=== PATIENT | female | born 1965 | race American Indian/Alaskan Native ===

== ENCOUNTER 2019-08-24 15:32 | Emergency (ER) | payer MEDICARE ==
[2019-08-24 15:41] VITALS: BP 135/87
--- NOTE | 2019-08-24 15:41 | Emergency Department Report ---
Blank Doc - Documentation Documentation: 53-year-old female that presents with headaches. Sated hx of migrane headaches and headache is similar. Denies any trauma. Denies thunderclap headache. Denies worst headaches. This initial assessment/diagnostic orders/clinical plan/treatment(s) is/are subject to change based on patient's health status, clinical progression and re- assessment by fellow clinical providers in the ED. Further treatment and workup at subsequent clinical providers discretion. Patient/guardians urged not to elope from the ED as their condition may be serious if not clinically assessed and managed. Initial orders include: 1- Patient sent to [facility] for further evaluation and treatment
[2019-08-24] MEDS ORDERED: NACL 0.9% 1000 ML 1,000 ML IV ONE (19:20)
[2019-08-24] MEDS ORDERED: DECADRON IV ONE (19:20)
[2019-08-24] MEDS ORDERED: TYLENOL #3 PO ONE (19:20)
[2019-08-24] MEDS ORDERED: REGLAN IV ONE (19:20)
[2019-08-24] MEDS ORDERED: BENADRYL IV ONE (19:20)
--- NOTE | 2019-08-24 20:19 | Emergency Department Report ---
ED Headache HPI - General Chief Complaint: Headache Stated Complaint: HEADACHE/HTN Time Seen by Provider: 08/24/19 15:39 - History of Present Illness Initial Comments: pt is a 53-year-old female that presents with headaches. has hx of same. tx'd with sumatriptan. this headache is similar to headaches of past , in intensisty and location. Pt denies any trauma, thunderclap headache, or worst headache ever. Timing/Duration: 24 hours Quality: moderate Head Injury Location: frontal, parietal Recent Head Trauma: frequent headaches Modifying Factors: improves with: movement Associated Symptoms: denies: nausea/vomiting, seizures, stiff neck, weakness Allergies/Adverse Reactions: Allergies aspirin Allergy (Verified 07/17/15 07:57) Unknown ibuprofen [From Motrin] Allergy (Verified 07/17/15 07:57) Unknown Home Medications: Ambulatory Orders Ciprofloxacin HCl [Ciprofloxacin TAB] 500 mg PO Q12HR #14 tab 07/17/15 Loperamide [Imodium] 2 mg PO Q2HR PRN #20 capsule 07/17/15 Ondansetron [Zofran Odt] 4 mg PO Q4-6H PRN #20 tab.rapdis 07/17/15 Potassium Chloride [K-Dur] 20 meq PO QDAY #3 tablet 07/17/15 Acetaminophen [Acetaminophen TAB] 1,000 mg PO Q6HR PRN #30 tablet 08/24/19 Metoclopramide [Reglan] 10 mg PO Q6H PRN #30 tablet 08/24/19 diphenhydrAMINE [Benadryl CAP] 25 mg PO Q6HR PRN #30 capsule 08/24/19 ED Review of Systems ROS: Stated complaint: HEADACHE/HTN Other details as noted in HPI Constitutional: denies: chills, fever Eyes: denies: eye pain, vision change ENT: congestion. denies: ear pain, throat pain Respiratory: denies: cough, shortness of breath, wheezing Cardiovascular: denies: chest pain, palpitations Endocrine: no symptoms reported Gastrointestinal: denies: abdominal pain, nausea, diarrhea Genitourinary: denies: urgency, dysuria, discharge Musculoskeletal: denies: back pain, joint swelling, arthralgia Skin: denies: rash, lesions Neurological: as per HPI, headache. denies: weakness, numbness, paresthesias, confusion, abnormal gait, vertigo Psychiatric: denies: anxiety, depression Hematological/Lymphatic: denies: easy bleeding, easy bruising ED Past Medical Hx - Past Medical History Previous Medical History?: Yes Hx Hypertension: Yes Additional medical history: fibramyalgia - Surgical History Past Surgical History?: Yes Additional Surgical History: 3 - Social History Smoking Status: Never Smoker Substance Use Type: None - Medications Home Medications: Home Medications Medication Instructions Recorded Confirmed Last Taken Type Ciprofloxacin HCl [Ciprofloxacin 500 mg PO Q12HR #14 tab 07/17/15 Unknown Rx TAB] Loperamide [Imodium] 2 mg PO Q2HR PRN #20 capsule 07/17/15 Unknown Rx Ondansetron [Zofran Odt] 4 mg PO Q4-6H PRN #20 tab.rapdis 07/17/15 Unknown Rx Potassium Chloride [K-Dur] 20 meq PO QDAY #3 tablet 07/17/15 Unknown Rx Acetaminophen [Acetaminophen TAB] 1,000 mg PO Q6HR PRN #30 tablet 08/24/19 Unknown Rx Metoclopramide [Reglan] 10 mg PO Q6H PRN #30 tablet 08/24/19 Unknown Rx diphenhydrAMINE [Benadryl CAP] 25 mg PO Q6HR PRN #30 capsule 08/24/19 Unknown Rx ED Physical Exam - General Limitations: No Limitations General appearance: alert, in no apparent distress - Head Head exam: Present: atraumatic, normocephalic - Eye Eye exam: Present: normal appearance, PERRL, EOMI. Absent: conjunctival injection, nystagmus Pupils: Present: normal accommodation - ENT ENT exam: Present: normal orophraynx, mucous membranes moist, TM's normal bilaterally, normal external ear exam - Neck Neck exam: Present: normal inspection, full ROM. Absent: tenderness, meningismus, lymphadenopathy, thyromegaly - Expanded Neck Exam Expanded Neck exam: Absent: midline deformity, anterior neck swelling, thyroid mass, carotid bruit, tracheal deviation - Respiratory Respiratory exam: Present: normal lung sounds bilaterally. Absent: wheezes, stridor, chest wall tenderness - Cardiovascular Cardiovascular Exam: Present: regular rate, normal rhythm, normal heart sounds. Absent: systolic murmur, diastolic murmur, rubs, gallop - GI/Abdominal GI/Abdominal exam: Present: soft, normal bowel sounds. Absent: distended, tenderness, bruit, hernia - Rectal Rectal exam: Present: deferred - Extremities Exam Extremities exam: Present: normal inspection - Back Exam Back exam: Present: normal inspection, full ROM. Absent: tenderness, CVA tenderness (R), CVA tenderness (L), muscle spasm, paraspinal tenderness, vertebral tenderness, rash noted - Neurological Exam Neurological exam: Present: alert, oriented X3, CN II-XII intact, normal gait, reflexes normal. Absent: motor sensory deficit - Expanded Neurological Exam Expanded Patient oriented to: Present: person, place, time Speech: Present: fluid speech Cranial nerves: EOM's Intact: Normal, Gag Reflex: Normal, Tongue Deviation: Normal, Nystagmus: Normal, Facial Sensation: Normal Upper motor neuron: Radames Neglect: Normal, Pronator Drift: Normal Motor strength exam: RUE: 5, LUE: 5, RLE: 5, LLE: 5 DTR: bicep (R): 2+, bicep (L): 2+, ankle (R): 2+, ankle (L): 2+ Best Eye Response (Desi): (4) open spontaneously Best Motor Response (Desi): (6) obeys commands Best Verbal Response (Desi): (5) oriented [place] Total: 15 - Psychiatric Psychiatric exam: Present: normal affect, normal mood - Skin Skin exam: Present: warm, dry, intact, normal color. Absent: rash ED Course Vital Signs 08/24/19 08/24/19 15:40 19:50 Temperature 98.2 F Pulse Rate 59 L Respiratory 16 16 Rate Blood Pressure 135/87 O2 Sat by Pulse 99 Oximetry ED Medical Decision Making - Medical Decision Making Headache is improved to 2/10. plan: DC home with prescription for Tylenol, Reglan, and Benadryl patient will follow with PCP in 2 days . Return the ED should symptoms worsen. Patient is alert oriented 3 ambulatory with steady gait no visual changes no nausea vomiting no acute distress Critical care attestation.: If time is entered above; I have spent that time in minutes in the direct care of this critically ill patient, excluding procedure time. ED Disposition Clinical Impression: Headache Qualifiers: Headache type: unspecified Headache chronicity pattern: acute headache Intractability: not intractable Qualified Code(s): R51 - Headache Disposition: DC-01 TO HOME OR SELFCARE Is pt being admited?: No Does the pt Need Aspirin: No Condition: Stable Instructions: Acute Headache (ED) Prescriptions: Acetaminophen [Acetaminophen TAB] 1,000 mg PO Q6HR PRN #30 tablet PRN Reason: Headache diphenhydrAMINE [Benadryl CAP] 25 mg PO Q6HR PRN #30 capsule PRN Reason: Headache Metoclopramide [Reglan] 10 mg PO Q6H PRN #30 tablet PRN Reason: Headache Referrals: PRIMARY CAREMD [Primary Care Provider] - 3-5 Days MALACHI COLVIN MD [Staff Physician] - 3-5 Days Forms: Work/School Release Form(ED) Time of Disposition: 20:24
== END 2019-08-24 20:32 | disposition home or self-care (01) ==
LOC: EEVIPCON 15:32 → ED 15:32
DX: R51 Headache (principal); I10 Essential (primary) hypertension; M79.7 Fibromyalgia; Z79.899 Other long term (current) drug therapy; Z88.6 Allergy status to analgesic agent
CPT/HCPCS: 96374; 96375; 99283; J1100; J1200; J2765; J7030

== ENCOUNTER 2020-09-25 17:17 | Emergency (ER) | payer MEDICARE ==
[2020-09-25] MEDS ORDERED: BUTALB/ACETAMINOPHEN/CAFFEINE TAB PO ONE (18:37)
--- NOTE | 2020-09-25 18:41 | Emergency Department Report ---
ED Altered Mental Status HPI - General Chief Complaint: Altered Mental Status Stated Complaint: LOC/POSSIBLE OVERDOSE PUI?: No Time Seen by Provider: 09/25/20 18:35 Source: patient Mode of arrival: Stretcher Limitations: No Limitations - History of Present Illness Initial Comments: Chief complaint: I may have taken too much medicine." HPI: This is a 54-year-old female with history of hypertension, anxiety, fibromyalgia who presents via EMS for unresponsive status. Patient was not arousable per daughter. After 2 mg of Narcan, patient became alert and oriented. Patient took Percocet or Fioricet for pain. She does remember having headache. She has frequent headaches. No preceding chest pain or palpitations. No depression. No suicidal homicidal ideation. Currently she has frontal throbbing headache. 7 out of 10. Constant. No radiation. MD Complaint: decreased responsiveness -: Sudden, This afternoon Severity: severe Context: other (Patient may have taken too much Percocet or Fioricet.) Associated Symptoms: other (Preceding headache) - Related Data Previous Rx's Medication Instructions Recorded Last Taken Type Ciprofloxacin HCl [Ciprofloxacin 500 mg PO Q12HR #14 tab 07/17/15 Unknown Rx TAB] Loperamide [Imodium] 2 mg PO Q2HR PRN #20 capsule 07/17/15 Unknown Rx Ondansetron [Zofran Odt] 4 mg PO Q4-6H PRN #20 tab.rapdis 07/17/15 Unknown Rx Potassium Chloride [K-Dur] 20 meq PO QDAY #3 tablet 07/17/15 Unknown Rx Acetaminophen [Acetaminophen TAB] 1,000 mg PO Q6HR PRN #30 tablet 08/24/19 Unknown Rx Metoclopramide [Reglan] 10 mg PO Q6H PRN #30 tablet 08/24/19 Unknown Rx diphenhydrAMINE [Benadryl CAP] 25 mg PO Q6HR PRN #30 capsule 08/24/19 Unknown Rx Allergies Allergy/AdvReac Type Severity Reaction Status Date / Time aspirin Allergy Unknown Verified 07/17/15 07:57 ibuprofen [From Motrin] Allergy Unknown Verified 07/17/15 07:57 ED Review of Systems ROS: Stated complaint: LOC/POSSIBLE OVERDOSE Other details as noted in HPI Comment: All other systems reviewed and negative Constitutional: denies: fever, malaise Respiratory: denies: cough, shortness of breath Cardiovascular: denies: chest pain Gastrointestinal: denies: abdominal pain, nausea Neurological: headache. denies: numbness, paresthesias, confusion ED Past Medical Hx - Past Medical History Hx Hypertension: Yes Hx Psychiatric Treatment: Yes (Anxiety) Additional medical history: fibramyalgia - Surgical History Past Surgical History?: Yes Additional Surgical History: 3 , partial hysterectomy - Social History Smoking Status: Former Smoker Substance Use Type: None - Medications Home Medications: Home Medications Medication Instructions Recorded Confirmed Last Taken Type Ciprofloxacin HCl [Ciprofloxacin 500 mg PO Q12HR #14 tab 07/17/15 Unknown Rx TAB] Loperamide [Imodium] 2 mg PO Q2HR PRN #20 capsule 07/17/15 Unknown Rx Ondansetron [Zofran Odt] 4 mg PO Q4-6H PRN #20 tab.rapdis 07/17/15 Unknown Rx Potassium Chloride [K-Dur] 20 meq PO QDAY #3 tablet 07/17/15 Unknown Rx Acetaminophen [Acetaminophen TAB] 1,000 mg PO Q6HR PRN #30 tablet 08/24/19 Unknown Rx Metoclopramide [Reglan] 10 mg PO Q6H PRN #30 tablet 08/24/19 Unknown Rx diphenhydrAMINE [Benadryl CAP] 25 mg PO Q6HR PRN #30 capsule 08/24/19 Unknown Rx ED Physical Exam - General Limitations: No Limitations General appearance: alert, in no apparent distress - Head Head exam: Present: atraumatic, normocephalic - Eye Eye exam: Present: normal appearance - ENT ENT exam: Present: mucous membranes moist - Neck Neck exam: Present: normal inspection, full ROM - Respiratory Respiratory exam: Present: normal lung sounds bilaterally. Absent: respiratory distress, wheezes, rales, rhonchi - Cardiovascular Cardiovascular Exam: Present: regular rate, normal rhythm, normal heart sounds. Absent: systolic murmur, diastolic murmur, rubs, gallop - GI/Abdominal GI/Abdominal exam: Present: soft, normal bowel sounds. Absent: distended, tenderness, guarding, rebound - Extremities Exam Extremities exam: Present: normal inspection - Neurological Exam Neurological exam: Present: alert, oriented X3 - Psychiatric Psychiatric exam: Present: normal affect, normal mood - Skin Skin exam: Present: warm, dry, intact, normal color. Absent: rash ED Course Vital Signs 09/25/20 18:33 Temperature 98.1 F Pulse Rate 77 Respiratory 22 Rate Blood Pressure 159/107 [Left] O2 Sat by Pulse 97 Oximetry - Lab Data Result diagrams: 09/25/20 18:51 09/25/20 18:51 Lab Results 09/25/20 09/25/20 09/25/20 Range/Units 18:51 18:51 18:51 WBC 9.2 (4.5-11.0) K/mm3 RBC 4.21 (3.65-5.03) M/mm3 Hgb 11.7 (10.1-14.3) gm/dl Hct 36.0 (30.3-42.9) % MCV 86 (79-97) fl MCH 28 (28-32) pg MCHC 33 (30-34) % RDW 13.7 (13.2-15.2) % Plt Count 265 (140-440) K/mm3 Lymph % (Auto) 16.2 (13.4-35.0) % Russell % (Auto) 6.2 (0.0-7.3) % Eos % (Auto) 0.4 (0.0-4.3) % Baso % (Auto) 0.3 (0.0-1.8) % Lymph # (Auto) 1.5 (1.2-5.4) K/mm3 Russell # (Auto) 0.6 (0.0-0.8) K/mm3 Eos # (Auto) 0.0 (0.0-0.4) K/mm3 Baso # (Auto) 0.0 (0.0-0.1) K/mm3 Seg Neutrophils % 76.9 H (40.0-70.0) % Seg Neutrophils # 7.1 (1.8-7.7) K/mm3 Sodium 140 (137-145) mmol/L Potassium 3.7 (3.6-5.0) mmol/L Chloride 107.1 H (98-107) mmol/L Carbon Dioxide 22 (22-30) mmol/L Anion Gap 15 mmol/L BUN 8 (7-17) mg/dL Creatinine 0.6 (0.6-1.2) mg/dL Estimated GFR > 60 ml/min BUN/Creatinine Ratio 13 % Glucose 99 (65-100) mg/dL Calcium 9.3 (8.4-10.2) mg/dL Salicylates < 0.3 L (2.8-20.0) mg/dL Acetaminophen (10.0-30.0) ug/mL Plasma/Serum Alcohol (0-0.07) % 09/25/20 09/25/20 Range/Units 18:51 18:51 WBC (4.5-11.0) K/mm3 RBC (3.65-5.03) M/mm3 Hgb (10.1-14.3) gm/dl Hct (30.3-42.9) % MCV (79-97) fl MCH (28-32) pg MCHC (30-34) % RDW (13.2-15.2) % Plt Count (140-440) K/mm3 Lymph % (Auto) (13.4-35.0) % Russell % (Auto) (0.0-7.3) % Eos % (Auto) (0.0-4.3) % Baso % (Auto) (0.0-1.8) % Lymph # (Auto) (1.2-5.4) K/mm3 Russell # (Auto) (0.0-0.8) K/mm3 Eos # (Auto) (0.0-0.4) K/mm3 Baso # (Auto) (0.0-0.1) K/mm3 Seg Neutrophils % (40.0-70.0) % Seg Neutrophils # (1.8-7.7) K/mm3 Sodium (137-145) mmol/L Potassium (3.6-5.0) mmol/L Chloride (98-107) mmol/L Carbon Dioxide (22-30) mmol/L Anion Gap mmol/L BUN (7-17) mg/dL Creatinine (0.6-1.2) mg/dL Estimated GFR ml/min BUN/Creatinine Ratio % Glucose (65-100) mg/dL Calcium (8.4-10.2) mg/dL Salicylates (2.8-20.0) mg/dL Acetaminophen 5.0 L (10.0-30.0) ug/mL Plasma/Serum Alcohol < 0.01 (0-0.07) % - EKG Data EKG shows normal: sinus rhythm, axis, QRS complexes, ST-T waves Rate: normal Interpretation: LVH 09/25/20 18:54 EKG obtained 1848 EKG interpreted by me Normal sinus rhythm rate 70 bpm normal axis prolonged PA interval, normal QTC no ST elevation positive LVH - Radiology Data Radiology results: report reviewed CT head no acute intracranial abnormality according to radiology impression - Medical Decision Making Unresponsive Status, decreased LOC: revived with naloxone. No indication of PE, arrhythmia, ICH on clinical exam. EKG unremarkable. cbc cmp apap asa all WNL. No SI or intention to overdose. Patient recalls taking clonidine, Percocet and Flexeril. She understands that all of these medications are sedating. She repeatedly and vehemently denies depression, suicidal intention, intentional overdose. She is discharged home. She is currently symptom-free. Critical care attestation.: If time is entered above; I have spent that time in minutes in the direct care of this critically ill patient, excluding procedure time. ED Disposition Clinical Impression: Polypharmacy, Altered mental state, Tension headache Disposition: DC-01 TO HOME OR SELFCARE Is pt being admited?: No Does the pt Need Aspirin: No Condition: Stable Referrals: PRIMARY CARE, [Primary Care Provider] - 3-5 Days
[2020-09-25 19:31] LABS: Basophils % (Auto) 0.3 % (0.0-1.8); Eosinophils % (Auto) 0.4 % (0.0-4.3); Hemoglobin 11.7 gm/dl (10.1-14.3); Lymphocytes # (Auto) 1.5 K/mm3 (1.2-5.4); Lymphocytes % (Auto) 16.2 % (13.4-35.0); Mean Corpuscular HGB Conc 33 % (30-34); Mean Corpuscular Volume 86 fl (79-97); Monocytes # (Auto) 0.6 K/mm3 (0.0-0.8); Monocytes % (Auto) 6.2 % (0.0-7.3); Platelet Count 265 K/mm3 (140-440); Red Blood Count 4.21 M/mm3 (3.65-5.03); Red Cell Distribution Width 13.7 % (13.2-15.2)
[2020-09-25 19:34] LABS: Blood Urea Nitrogen 8 mg/dL (7-17); Calcium 9.3 mg/dL (8.4-10.2); Hemolysis Index 3
--- NOTE | 2020-09-25 19:40 | Cat Scan Report ---
CT head/brain wo con INDICATION: headache syncope. TECHNIQUE: Routine CT head. All CT scans at this location are performed using CT dose reduction for A SANDRA by means of automated exposure control. COMPARISON: None. FINDINGS: Intracranial: Cheng-white matter differentiation is maintained. No intracranial hemorrhage. No extra a xial collection.. No hydrocephalus. No herniation. Sinuses: Paranasal sinuses and mastoid air cells are essentially clear. Orbits: Globes are intact. Calvarium: No acute fracture. IMPRESSION: 1. No acute intracranial abnormality. Signer Name: Mark Diaz MD Signed: 09/25/2020 7:39 PM Workstation Name: [id number]
[2020-09-25 19:44] LABS: BUN/Creatinine Ratio 13
[2020-09-25 20:59] VITALS: BP 182/97
== END 2020-09-25 20:42 | disposition home or self-care (01) ==
LOC: ED 17:17
DX: R41.82 Altered mental status, unspecified (principal); G44.209 Tension-type headache, unspecified, not intractable; I10 Essential (primary) hypertension; F41.9 Anxiety disorder, unspecified; Z90.710 Acquired absence of both cervix and uterus; T50.901A Poisoning by unspecified drugs, medicaments and biological substances, accidental (unintentional), initial encounter; Z87.891 Personal history of nicotine dependence; Z79.899 Other long term (current) drug therapy; Z88.8 Allergy status to other drugs, medicaments and biological substances
CPT/HCPCS: 36415; 70450; 80048; 80320; 85025; 93005; G0480